=== PATIENT | female | born 1955 | race Hispanic/Latino ===

== ENCOUNTER → 2017-11-01 | Outpatient (REF) | payer MEDICARE, MEDICAID ==
[2017-11-01 16:12] LABS: ANION GAP 6 MEQ/L (8-16); BLOOD UREA NITROGEN 8 MG/DL (7-18); CALCIUM LEVEL 8.3 MG/DL (8.8-10.2); CARBON DIOXIDE LEVEL 29 MEQ/L (21-32); CHLORIDE LEVEL 109 MEQ/L (98-107); CHOLESTEROL LEVEL 155 MG/DL (<200); CREATININE FOR GFR 0.78 MG/DL (0.55-1.30); GLOMERULAR FILTRATION RATE > 60.0 (>45); GLUCOSE, FASTING 207 MG/DL (70-100); HDL CHOLESTEROL 42 MG/DL (>40); LDL CHOLESTEROL 63.2 MG/DL (<100); NON-HDL-C 113 MG/DL; POTASSIUM SERUM 4.1 MEQ/L (3.5-5.1); SODIUM LEVEL 144 MEQ/L (136-145); TRIGLYCERIDES LEVEL 249 MG/DL (<150)
[2017-11-01 16:21] LABS: MALB URINE SIEMENS 42.1 MG/L; MAU/CREAT RATIO 22.8 MCG/MG (0.0-30.0)
[2017-11-01 16:50] LABS: ESTIMATED AVERAGE GLUCOSE 194 MG/DL (60-110); HEMOGLOBIN A1c 8.4 %
== END ==
LOC: M SFHCPLAZ 12:09
DX: E11.65 Type 2 diabetes mellitus with hyperglycemia (principal); E78.2 Mixed hyperlipidemia
CPT/HCPCS: 83036

== ENCOUNTER → 2017-11-26 | Outpatient (CLI) | payer MEDICARE, MEDICAID | LOC: M RAD 16:07 | DX: M25.562 Pain in left knee (principal) | CPT/HCPCS: 73560 ==

== ENCOUNTER → 2018-03-21 | Outpatient (REF) | payer MEDICARE, MEDICAID ==
[2018-03-21 14:18] LABS: ESTIMATED AVERAGE GLUCOSE 111 MG/DL (60-110); HEMOGLOBIN A1c 5.5 %
[2018-03-21 14:29] LABS: ANION GAP 7 MEQ/L (8-16); BLOOD UREA NITROGEN 10 MG/DL (7-18); CALCIUM LEVEL 8.9 MG/DL (8.8-10.2); CARBON DIOXIDE LEVEL 29 MEQ/L (21-32); CHLORIDE LEVEL 111 MEQ/L (98-107); CREATININE FOR GFR 0.88 MG/DL (0.55-1.30); GLOMERULAR FILTRATION RATE > 60.0 (>45); GLUCOSE, FASTING 95 MG/DL (70-100); POTASSIUM SERUM 3.7 MEQ/L (3.5-5.1); SODIUM LEVEL 147 MEQ/L (136-145)
== END ==
LOC: M SFHCPLAZ 11:23
DX: E11.65 Type 2 diabetes mellitus with hyperglycemia (principal)
CPT/HCPCS: 83036

== ENCOUNTER → 2018-03-29 | Outpatient (CLI) | payer MEDICARE, MEDICAID | LOC: M SLEEP 19:02 | DX: G47.33 Obstructive sleep apnea (adult) (pediatric) (principal) | CPT/HCPCS: 95810 ==

== ENCOUNTER → 2018-04-01 | Outpatient (CLI) | payer MEDICARE, MEDICAID | LOC: M RAD 09:20 | DX: Z86.73 Personal history of transient ischemic attack (TIA), and cerebral infarction without residual deficits (principal) | CPT/HCPCS: 93880 ==

== ENCOUNTER → 2018-04-17 | Outpatient (CLI) | payer MEDICARE, MEDICAID | LOC: M CARPUL 07:58 | DX: Z86.73 Personal history of transient ischemic attack (TIA), and cerebral infarction without residual deficits (principal) | CPT/HCPCS: 93306 ==

== ENCOUNTER → 2018-06-25 | Outpatient (CLI) | payer MEDICARE, MEDICAID ==
[~2018-06-25] MED LIST: ATOR80TA59 PO; CLOP75TA2 PO; GABA600T PO; LISI10TA4 PO; METF500T13 PO; METO1TAB32 PO; NICO7PA TD; NITR0.4S14 SL; PRED10TA2 PO; TOUJ1.2I SC; TRAM50TA2 PO; TRUL0.5I SC; VENTAER INH
--- NOTE | 2018-06-28 14:46 | SLEEPCENT ---
DATE OF PROCEDURE: 06/25/2018 ORDERING PROVIDER: JOB Nix Nocturnal polysomnography was performed for the titration of pressure therapy in this patient with obstructive sleep apnea syndrome. Apnea-hypopnea index of 5.9. For testing, a [employer]pirStratoss Mana View full face mask of small size was used. 4 cm of water pressure were applied to the circuit and the lights were extinguished. 8 hours and 24 minutes of data were reviewed. There are 385 minutes of sleep identified. Sleep latency was prolonged at 31 minutes. Rapid eye movement (REM) latency was prolonged at 121. Sleep architecture was fair. There were four REM cycles noted. Some fragmentation persisted. Overall sleep efficiency was 77.6%. The patient's electrocardiogram showed a sinus rhythm with an average heart rate of 68 beats per minute. Electroencephalogram (EEG) showed some coarsening in background but otherwise normal waveforms for awake and sleep. Respiratory events were found best palliated with C-PAP to a pressure of +10 with which the patient slept through REM without respiratory event or oxygen desaturation in the supine posture. There was some activity noted in the limb leads on this occasion. Limb movement arousals occurred 7.8 times per hour. IMPRESSION: Obstructive sleep apnea syndrome (G47.33) RECOMMENDATIONS: Nightly use of pressure therapy 10 cm of water.
== END ==
LOC: M SLEEP 18:53
PROVIDERS: ATTEND Physician Assistant
DX: G47.33 Obstructive sleep apnea (adult) (pediatric) (principal)

== ENCOUNTER 2018-08-26 11:35 | Emergency (ER) | payer MEDICARE, MEDICAID ==
[~2018-08-26] VITALS: Ht 149.9 cm; Wt 74.5 kg
[~2018-08-26 11:35] MED LIST changes: -GABA600T PO; +GABA600T4 PO
[2018-08-26] MEDS ORDERED: GI COCKTAIL 50ML BTL(HYOSCYAMINE/MAALOX/LIDOCAINE VISCOUS)(1:3:1) PO ONE (12:15)
[2018-08-26 12:19] LABS: BASO % 0.4 % (0.0-1.0); EOS # 0.1 10^3/uL (0.0-0.50); EOS % 1.8 % (0.0-3.0); HEMATOCRIT 41.4 % (36.0-47.0); LYMPH # 1.4 10^3/uL (1.5-4.5); MEAN CORPUSCULAR HEMOGLOBIN 29.4 pg (27.0-33.0); MEAN CORPUSCULAR HGB CONC 33.8 g/dl (32.0-36.5); MONO # 0.3 10^3/uL (0.0-0.8); MONO % 6.2 % (0.0-5.0); NEUTROPHILS # 3.6 10^3/uL (1.8-7.7); NEUTROPHILS % 66.2 % (36.0-66.0); PLATELET COUNT, AUTOMATED 156 10^3/uL (150-450); RED BLOOD COUNT 4.76 10^6/uL (4.00-5.40); WHITE BLOOD COUNT 5.5 10^3/uL (4.0-10.0)
[2018-08-26 12:22] LABS: INR 1.03; PROTHROMBIN TIME 13.6 SECONDS (12.1-14.4)
[2018-08-26 12:31] LABS: BLOOD UREA NITROGEN 14 MG/DL (7-18); CALCIUM LEVEL 8.3 MG/DL (8.8-10.2); CARBON DIOXIDE LEVEL 27 MEQ/L (21-32); CHLORIDE LEVEL 109 MEQ/L (98-107); CPK CREATINE PHOSPHOKINASE 99 U/L (26-192); CREATININE FOR GFR 0.74 MG/DL (0.55-1.30); GLOMERULAR FILTRATION RATE > 60.0 (>45); GLUCOSE, FASTING 93 MG/DL (70-100); MB/CK RELATIVE INDEX 1.21 (< OR =4); POTASSIUM SERUM 3.9 MEQ/L (3.5-5.1); SODIUM LEVEL 142 MEQ/L (136-145); TROPONIN I < 0.02 NG/ML (< 0.10)
--- NOTE | 2018-08-26 13:16 | REP ---
AP PORTABLE CHEST: 08/26/2018. Clinical history: Chest pain. Comparison: 07/04/2018. Findings: Lungs are less well inflated than on the previous study. There is crowding of markings but no dense consolidation, pleural effusion, definite atelectasis or mass. Mild underlying fibrotic changes are noted. The heart is not enlarged for portable technique and this degree of inflation. The aorta is mildly tortuous but unchanged. Airway is midline. There is no abnormal widening of the mediastinum. I see no vascular redistribution or pulmonary edema. Bones show some degenerative changes in the spine. Impression: 1. Hypoinflated chest with some underlying interstitial change consistent with fibrosis. No cardiomegaly, edema, effusion or definite infiltrate. Electronically Signed by Ethan Williamson MD 08/26/2018 05:56 P
[2018-08-26 13:19] VITALS: BP 130/63
--- NOTE | 2018-08-26 21:00 | ECGEPIP ---
Stationary ECG Study [facility] - ED Test Date: 2018-08-26 Pat Name: REYNA MURILLO Department: Room: - Gender: F Bar Staff: MONA : [id number] Requested By: Demetrio Acevedo Order Number: [id number] Reading MD: Juani Serrano Measurements Intervals [place] Rate: 72 P: 61 ID: [id number] QRS: -8 QRSD: 88 T: 45 QT: 395 QTc: 433 Interpretive Statements SINUS RHYTHM SIMILAR 07/04/18 Electronically Signed On 08-26-2018 21:00:26 EST by Juani Serrano
== END 2018-08-26 13:20 | disposition home or self-care (01) ==
LOC: M ED 11:35
DX: I20.8 Other forms of angina pectoris (principal); I11.9 Hypertensive heart disease without heart failure; E78.5 Hyperlipidemia, unspecified; E11.9 Type 2 diabetes mellitus without complications; I69.354 Hemiplegia and hemiparesis following cerebral infarction affecting left non-dominant side; Z87.891 Personal history of nicotine dependence; Z91.013 Allergy to seafood; Z79.899 Other long term (current) drug therapy; Z79.4 Long term (current) use of insulin; Z79.02 Long term (current) use of antithrombotics/antiplatelets

== ENCOUNTER → 2018-09-05 | Outpatient (REF) | payer MEDICARE, MEDICAID ==
[2018-09-05 10:54] LABS: BLOOD UREA NITROGEN 13 MG/DL (7-18); CALCIUM LEVEL 8.5 MG/DL (8.8-10.2); CARBON DIOXIDE LEVEL 20 MEQ/L (21-32); CHLORIDE LEVEL 114 MEQ/L (98-107); CREATININE FOR GFR 0.73 MG/DL (0.55-1.30); GLOMERULAR FILTRATION RATE > 60.0 (>45); GLUCOSE, FASTING 92 MG/DL (70-100); POTASSIUM SERUM 4.4 MEQ/L (3.5-5.1); SODIUM LEVEL 143 MEQ/L (136-145)
[2018-09-05 11:21] LABS: HEMOGLOBIN A1c 6.1 %
== END ==
LOC: M SFHCPLAZ 08:44
PROVIDERS: ATTEND Family Medicine
DX: E11.65 Type 2 diabetes mellitus with hyperglycemia (principal)